=== PATIENT | female | born 1940 | race Two or more races ===

== ENCOUNTER 2021-03-31 11:41 | Emergency (ER) | payer MEDICARE, BC ==
[~2021-03-31] VITALS: Ht 162.6 cm; Wt 81.6 kg
[2021-03-31 12:37] LABS: Urine Bacteria NONE SEEN /hpf (None Seen); Urine Blood Negative /uL (Negative); Urine Specific Gravity 1.009 (1.001-1.035); Urine WBC 1 /hpf (0 - 5)
[2021-03-31 15:00] LABS: Basophils # (auto) 0.1 10 ^3/uL (0-0.2); Basophils % (auto) 0.7 % (0.0-2.0); Eosinophils # (auto) 0.2 10 ^3/uL (0-0.8); Eosinophils % (auto) 2.4 % (0.0-7.0); Hematocrit 28.9 % (36.0-46.0); Hemoglobin 9.7 g/dL (12.2-16.2); Lymphocytes # (auto) 1.5 10 ^3/uL (0.4-5.4); Lymphocytes % (auto) 15.5 % (10.0-50.0); Mean Corpuscular Hgb Conc. 33.7 g/dL (32.0-36.0); Monocytes # (auto) 0.9 10 ^3/uL (0-1.3); Monocytes % (auto) 9.1 % (0.0-12.0); Neutrophils % (auto) 72.3 % (37.0-80.0); Nucleated Red Blood Cells % 0.1 %; Red Blood Cells 3.25 10^6/uL (4.0-5.20); Red Cell Distribution Width 14.5 % (11.8-14.3); White Blood Cell 9.7 10^3/uL (4.4-10.8)
[2021-03-31 15:05] LABS: Chloride 105 mmol/L (98-107); Sodium 138 mmol/L (136-145)
[2021-03-31 15:09] LABS: Alanine Aminotransferase 24 U/L (13-56); Albumin 3.7 g/dL (3.4-5.0); Anion Gap 7 (5-15); Aspartate Aminotransferase 28 U/L (15-37); BUN/Creatinine Ratio 23.8; Blood Urea Nitrogen 44 mg/dL (7-18); Calcium 11.1 mg/dL (8.5-10.1); Carbon Dioxide 26 mmol/L (21-32); GFR African American 34 mL/min; GFR Non-African American 28 mL/min; Glucose 103 mg/dL (74-106)
[2021-03-31 15:11] LABS: Alkaline Phosphatase 167 U/L (45-117); Bilirubin, Total 0.6 mg/dL (0.2-1.0); Total Protein 7.8 g/dL (6.4-8.2)
[2021-03-31 15:19] VITALS: BP 135/89
== END 2021-03-31 15:35 | disposition home or self-care (01) ==
LOC: EDBD 11:41 → ER 11:41
DX: H10.9 Unspecified conjunctivitis (principal); R05 Cough
CPT/HCPCS: 36415; 71045; 76510; 80053; 81001; 84484; 85025